=== PATIENT | female | born 1935 ===

== ENCOUNTER → 2018-06-08 | Emergency (ER) | payer OTHER ==
[~2018-06-08] VITALS: Ht 157.5 cm; Wt 98.0 kg
[~2018-06-08] MED LIST: ASPIRIN81 MG PO; CLARITIN10 MG PO; FLONASE16 GM NS; GLIPIZIDE XL10 MG PO; LOSARTAN-HCTZ1 EAC1 PO; METFORMIN HCL850 MG PO; NEURONTIN300 MG PO; OMEPRAZOLE20 M1 PO
== END | disposition home or self-care (01) ==
LOC: ER 12:29
DX: I16.0 Hypertensive urgency (principal); I10 Essential (primary) hypertension

== ENCOUNTER 2018-06-17 21:52 | Emergency (ER) | payer OTHER ==
[~2018-06-17] VITALS: Ht 152.4 cm; Wt 95.7 kg
== END 2018-06-18 02:05 | disposition home or self-care (01) ==
LOC: ER 21:52
DX: I16.0 Hypertensive urgency (principal); I10 Essential (primary) hypertension

== ENCOUNTER 2018-11-14 11:52 | Outpatient (CLI) | payer OTHER | END 2018-11-14 13:11 | disposition home or self-care (01) | LOC: NUCLEAR 11:52 | DX: M81.0 Age-related osteoporosis without current pathological fracture (principal) ==

== ENCOUNTER 2018-11-14 11:55 | Outpatient (CLI) | payer OTHER | END 2018-11-14 12:01 | disposition home or self-care (01) | LOC: MAMO-SONO 11:55 | DX: N60.01 Solitary cyst of right breast (principal); N60.02 Solitary cyst of left breast; Z12.31 Encounter for screening mammogram for malignant neoplasm of breast; Z87.898 Personal history of other specified conditions ==

== ENCOUNTER 2020-07-28 13:37 | Outpatient (CLI) | payer OTHER | END 2020-07-28 13:48 | disposition home or self-care (01) | LOC: MRI 13:37 | DX: I67.89 Other cerebrovascular disease (principal) | CPT/HCPCS: 70551 ==

== ENCOUNTER 2020-09-03 21:08 | Emergency (ER) | payer OTHER ==
[~2020-09-03] VITALS: Ht 149.9 cm; Wt 93.4 kg
[2020-09-03] MEDS ORDERED: PROTONIX40 MG PO (21:53)
[2020-09-03] MEDS ORDERED: VITAMIN D31250 MCG PO (21:53)
[2020-09-03] MEDS ORDERED: LOSARTAN POTASS25 MG PO (21:54)
[2020-09-03] MEDS ORDERED: GLIPIZIDE ER10 MG PO (21:56)
[2020-09-03] MEDS ORDERED: ATORVASTATIN CA40 MG PO (21:56)
[2020-09-03] MEDS ORDERED: METFORMIN HCL500 M4 PO (21:56)
[2020-09-03] MEDS ORDERED: AMLODIPINE-OLM1 EACH PO (21:56)
== END 2020-09-04 05:11 | disposition home or self-care (01) ==
LOC: ER 21:08 → CPU-OBS 21:45 → ER 21:45
DX: I16.0 Hypertensive urgency (principal); I10 Essential (primary) hypertension